=== PATIENT | male | born 1985 | race Caucasian/White ===

== ENCOUNTER 2017-05-08 22:19 | Emergency (ER) | payer SELFPAY ==
--- NOTE | ~2017-05-08 | ER ---
PATIENT'S NAME: NATE CASE [facility] AGE: 31 Y [address] ROOM: [place] [id number] LOCATION: [facility] ADMIT DATE: 05/08/2017 ER/Outpatient Report DISCHARGE DATE: 05/08/2017 FAMILY PHYSICIAN: PHYSICIAN, NO ATTENDING PHYSICIAN: Jose Ervin SEEN AT: 2343 hours. HISTORY OF PRESENT ILLNESS: The patient is a 31-year-old male who presents with rash, started tonight. Rash has been migratory and itchy. The patient also complains of a sore throat. Otherwise, denies any new medications or exposure to any chemicals. ALLERGIES: PENICILLIN. HOME MEDICATIONS: None. PAST MEDICAL HISTORY: No chronic diseases. SURGERIES: None. SOCIAL HISTORY: Smoker, half pack a day. Alcohol, occasionally. REVIEW OF SYSTEMS: GENERAL: No fever or chills. HEAD/EENT: Includes sore throat. RESPIRATORY: No cough or wheezing. SKIN: Includes a welt-like migratory rash, pruritic. PHYSICAL EXAMINATION: VITAL SIGNS: Blood pressure 151/100, his temperature is 97.2, his respiratory rate is 16, pulse is 80, and O2 saturation is 95%. GENERAL APPEARANCE: White male, in no obvious distress. HEAD/EENT: Eyes: PERRLA. No icterus. Mouth: Posterior pharynx was slightly red. NECK: He had slightly tender anterior nodes. LUNGS: Clear. SKIN: Includes kind of welt-like hives on his lower extremities and trunk. PATIENT'S NAME: NATE CASE [facility] AGE: 31 Y [address] ROOM: [place] [address] LOCATION: [facility] ADMIT DATE: 05/08/2017 ER/Outpatient Report DISCHARGE DATE: 05/08/2017 FAMILY PHYSICIAN: PHYSICIAN, NO ATTENDING PHYSICIAN: Jsoe Ervin LABORATORY DATA: His rapid strep is negative. ASSESSMENT: Urticaria, unknown etiology. PLAN: Benadryl 50, one given here in the emergency room. He is to continue 50 every 6 hours for the next 24 hours. Follow up with his primary provider if it does not improve. JS COOPER FOR JOSE ERVIN MD SWJ/modl /[id number] d: 05/09/17 0343 t: 05/16/17 1233, OUTPATIENT REPORT
== END 2017-05-08 23:04 | disposition disaster alternative care site (69) ==
LOC: GMED 22:19
DX: L50.9 Urticaria, unspecified (principal); F17.210 Nicotine dependence, cigarettes, uncomplicated; Z88.0 Allergy status to penicillin